=== PATIENT | male | born 1960 | race Asian ===

== ENCOUNTER 2017-10-10 12:29 | Emergency (ER) | payer OTHER ==
[~2017-10-10] VITALS: Ht 172.7 cm; Wt 72.6 kg
[2017-10-10 13:14] LABS: PLATELET COUNT 166 K/uL (142-355)
[2017-10-10 13:22] LABS: POTASSIUM 3.5 mmol/L (3.6-5.2)
== END 2017-10-10 14:50 | disposition home or self-care (01) ==
LOC: ED 12:29
PROVIDERS: Family Medicine
DX: Z04.8 Encounter for examination and observation for other specified reasons (principal)
CPT/HCPCS: 80053; 80307; 80320; 80329; 81000; 85027; 93005; 99283

== ENCOUNTER 2019-12-26 19:32 | Emergency (ER) | payer OTHER ==
[~2019-12-26] VITALS: Ht 172.7 cm; Wt 72.6 kg
[2019-12-26 21:03] VITALS: BP 120/78; TEMP 99
== END 2019-12-26 21:03 | disposition home or self-care (01) ==
LOC: ED 19:32
DX: H10.89 Other conjunctivitis (principal)
CPT/HCPCS: 99282

== ENCOUNTER 2021-10-20 18:19 | Emergency (ER) | payer OTHER ==
[~2021-10-20] VITALS: Ht 172.7 cm; Wt 72.6 kg
[2021-10-20 19:39] LABS: PLATELET COUNT 119 K/uL (142-355)
[2021-10-20 19:47] LABS: POTASSIUM 3.5 mmol/L (3.6-5.2)
[2021-10-20 20:55] VITALS: BP 119/84; TEMP 98.4
== END 2021-10-20 20:55 | disposition home or self-care (01) ==
LOC: ED 18:19
PROVIDERS: Emergency Medicine
DX: M10.9 Gout, unspecified (principal)
CPT/HCPCS: 36415; 80053; 84550; 85027; 99283

== ENCOUNTER 2022-03-17 18:27 | Observation (INO) | payer OTHER ==
[~2022-03-17] VITALS: Ht 172.7 cm; Wt 78.9 kg
[2022-03-17 18:40] VITALS: BP 132/91; TEMP 98.4
[2022-03-17 19:39] LABS: PLATELET COUNT 239 K/uL (142-355)
[2022-03-18] VITALS (10 sets, daily range): BP systolic 116–166; BP diastolic 83–110; TEMP 98.2–98.8; Ht 172.7 cm; Wt 78.9 kg
[2022-03-18 05:30] LABS: PLATELET COUNT 186 K/uL (142-355)
[2022-03-18 05:42] LABS: POTASSIUM 2.9 mmol/L (3.6-5.2)
[2022-03-19 00:10] VITALS: BP 142/88; TEMP 98.3
[2022-03-19 04:00] VITALS: BP 152/92; TEMP 98.6
[2022-03-19 05:03] LABS: PLATELET COUNT 131 K/uL (142-355)
[2022-03-19 07:42] VITALS: BP 137/83; TEMP 98.7
[2022-03-19 11:31] VITALS: BP 145/93; TEMP 98.6
[2022-03-19] MEDS ORDERED: METO-837 PO (14:13)
[2022-03-19] MEDS ORDERED: ZITHROMAX500 MG PO (14:16)
[2022-03-19] MEDS ORDERED: ASPI81TA4 PO (14:16)
== END 2022-03-19 14:55 | disposition home or self-care (01) ==
LOC: ED 18:27 → MED/SURG 23:45
PROVIDERS: ADMIT Emergency Medicine; ATTEND Internal Medicine
DX: A04.5 Campylobacter enteritis (principal); E87.6 Hypokalemia; E83.42 Hypomagnesemia; R74.8 Abnormal levels of other serum enzymes; N28.9 Disorder of kidney and ureter, unspecified; F10.10 Alcohol abuse, uncomplicated
CPT/HCPCS: 36415; 80048; 80053; 81002; 83690; 83735; 84484; 85027; 87015; 87045; 87635; 87899; 93005; 96360; 96361; 96367; 96374; 96375; 99220; 99284; G0378; J2405; J3475; J3490; U0003

== ENCOUNTER 2022-11-04 11:14 | Emergency (ER) | payer OTHER ==
[~2022-11-04] VITALS: Ht 172.7 cm; Wt 74.8 kg
[~2022-11-04 11:14] MED LIST: ASPI81TA4 PO; METO-837 PO; ZITHROMAX500 MG PO
[2022-11-04 11:55] LABS: PLATELET COUNT 110 K/uL (142-355)
[2022-11-04 12:13] LABS: POTASSIUM 3.5 mmol/L (3.6-5.2)
[2022-11-04 17:03] VITALS: BP 145/88; TEMP 97.1
== END 2022-11-04 17:05 | disposition short-term general hospital (02) ==
LOC: ED 11:14
PROVIDERS: Emergency Medicine
DX: N17.9 Acute kidney failure, unspecified (principal); I95.9 Hypotension, unspecified; R73.9 Hyperglycemia, unspecified; E87.1 Hypo-osmolality and hyponatremia; R77.8 Other specified abnormalities of plasma proteins; F17.220 Nicotine dependence, chewing tobacco, uncomplicated; F10.90 Alcohol use, unspecified, uncomplicated
CPT/HCPCS: 80053; 80320; 82550; 83880; 84484; 85027; 93005; 96360; 96361; 99284